=== PATIENT | male | born 1945 | race Caucasian/White ===

== ENCOUNTER → 2018-11-15 | Outpatient (CLI) | payer MEDICARE ==
--- NOTE | 2018-11-15 17:03 | MR ---
EXAMINATION TYPE: MR brain and iac wo/w con DATE OF EXAM: 11/15/2018 COMPARISON: HISTORY: Vertigo TECHNIQUE: Multiplanar, multisequence images of the brain and brainstem, cerebellopontine angles is performed wi thout and with IV contrast, utilizing 7 mL intravenous Gadavist . High-resolution small [id number] images obtained. FINDINGS: Diffusion weighted images demonstrate no evidence of a recent infarct or other diffusion ab normality. There is white matter signal abnormality, scattered hyperintensities are present on inver ilya recovery T2-weighted sequences within the periventricular, subcortical white matter, approximate ly 30 lesions are present. The ventricular system and cisternal spaces are normal in size and appear ance. The brain volume is age appropriate. Cerebellopontine angles are normal. Midline structures demonstrate normal morphology. The craniocervical junction appears within normal limits. Post contrast images demonstrate no abnormal enhancement. The dural venous sinuses appear pa tent. The visualized sinuses are clear and the globes are intact. IMPRESSION: Age-related atrophy and probable chronic small vessel ischemia. No abnormality of the int ernal auditory canals is evident.
== END | disposition home or self-care (01) ==
LOC: RADMRIMAIN 13:34
PROVIDERS: ATTEND Otolaryngology
DX: G31.1 Senile degeneration of brain, not elsewhere classified (principal)
CPT/HCPCS: 70553; A9585

== ENCOUNTER → 2019-04-03 | Outpatient (CLI) | payer MEDICARE ==
--- NOTE | 2019-04-04 16:21 | MR ---
MR angiogram of the neck without contrast HISTORY: Carotid stenosis [id number] imaging obtained through the neck and three-dimensional post processing was performed on an alternate workstation. No comparisons . Distal portion of the common carotid arteries, internal and external carotid arteries are patent. T here is no evidence of hemodynamic significant stenosis of the internal carotid arteries by NASCET cr iteria. Mild approximate 50% diameter reduction of the proximal internal carotid artery suspected on the left. Vertebral arteries are patent and codominant. No evident dissection or aneurysm. IMPRESSION: Mild carotid stenosis of the proximal internal carotid artery on the left could be confir med with carotid Doppler duplex.
== END | disposition home or self-care (01) ==
LOC: RADMRIMAIN 15:24
PROVIDERS: ATTEND Psychiatry & Neurology Neurology
DX: I65.22 Occlusion and stenosis of left carotid artery (principal)
CPT/HCPCS: 70547

== ENCOUNTER 2020-04-12 17:06 | Observation (INO) | payer MEDICARE ==
--- NOTE | 2020-04-12 17:25 | ED ---
Neuro HPI - General Chief Complaint: Neuro Symptoms/Deficit Stated Complaint: TIA-further testing Time Seen by Provider: 04/12/20 17:09 Source: patient, EMS, RN notes reviewed, old records reviewed Mode of arrival: EMS Limitations: no limitations - History of Present Illness Is the patient presenting with stroke symptoms?: No -: hour(s) Initial Comments: This is a 72-year-old male DF for evaluation patient is accepted in transfer. No current neurological symptoms. Patient has no complaints patient does suffer from high blood pressure Location: other (9) History of same: Yes Place: home Improves With: none Worsens With: none Treatments Prior to Arrival: none - Related Data Allergies/Adverse Reactions: Allergies Allergy/AdvReac Type Severity Reaction Status Date / Time celecoxib [From Celebrex] Allergy Rash/Hives Verified 04/12/20 17:15 Review of Systems ROS Statement: Those systems with pertinent positive or pertinent negative responses have been documented in the HPI. ROS Other: All systems not noted in ROS Statement are negative. General Exam Limitations: no limitations General appearance: alert, in no apparent distress Head exam: Present: atraumatic, normocephalic, normal inspection Eye exam: Present: normal appearance, PERRL, EOMI. Absent: scleral icterus, conjunctival injection, periorbital swelling ENT exam: Present: normal exam, mucous membranes moist Neck exam: Present: normal inspection. Absent: tenderness, meningismus, lymphadenopathy Respiratory exam: Present: normal lung sounds bilaterally. Absent: respiratory distress, wheezes, rales, rhonchi, stridor Cardiovascular Exam: Present: regular rate, normal rhythm, normal heart sounds. Absent: systolic murmur, diastolic murmur, rubs, gallop, clicks GI/Abdominal exam: Present: soft, normal bowel sounds. Absent: distended, tenderness, guarding, rebound, rigid Extremities exam: Present: normal inspection, full ROM, normal capillary refill. Absent: tenderness, pedal edema, joint swelling, calf tenderness Back exam: Present: normal inspection Neurological exam: Present: alert, oriented X3, CN II-XII intact Psychiatric exam: Present: normal affect, normal mood Skin exam: Present: warm, dry, intact, normal color. Absent: rash Stroke MDM - NIH Stroke Scale 1a. Level of Consciousness: (0) alert 1b. LOC Questions: (0) answers correctly 1c. LOC Commands: (0) performs tasks correctly 2. Best Gaze: (0) normal 3. Visual: (0) no visual loss 4. Facial Palsy: (0) normal symmetrical movement 5a. Motor Arm Left: (0) no drift 5b. Motor Arm Right: (0) no drift 6a. Motor Leg Left: (0) no drift 6b. Motor Leg Right: (0) no drift 7. Limb Ataxia: (0) absent 8. Sensory: (0) normal 9. Best Language: (0) no aphasia 10. Dysarthria: (0) normal 11. Extinction/Inattention: (0) no abnormality - Thrombolytic Inclusion/Exclusion Thrombolytic Exclusion Criteria: Symptom Onset > 4.5 Hours - Medical Decision Making 74 male DF for evaluation TIA patient via for neurology consult tomorrow Past Medical History Past Medical History: Hypertension History of Any Multi-Drug Resistant Organisms: None Reported Past Surgical History: Back Surgery Past Psychological History: No Psychological Hx Reported Smoking Status: Never smoker Past Alcohol Use History: Occasional Past Drug Use History: None Reported Course Vital Signs 04/12/20 17:10 Temperature 99.3 F Pulse Rate 91 Respiratory 18 Rate Blood Pressure 141/70 O2 Sat by Pulse 99 Oximetry - Reevaluation(s) Reevaluation #1: 04/12/20 17:33 Medical record and transfer paperwork are reviewed Reevaluation #2: 04/12/20 17:34 no current findings of stroke on physical exam Disposition Clinical Impression: Transient cerebral ischemia Disposition: ADMITTED IP TO THIS [facility] Condition: Good Is patient prescribed a controlled substance at d/c from ED?: No Referrals: Dav Vidal MD [Primary Care Provider] - 1-2 days
[2020-04-12] MEDS ORDERED: ASPIRIN 325 MG TAB PO STA (17:32)
[2020-04-12 18:47] VITALS: RESP 16
[2020-04-12] MEDS ORDERED: HYDROcodone/APAP 5-325MG 1 EACH TAB PO PRN (20:37)
[2020-04-12] MEDS ORDERED: ALPRAZolam 0.25 MG TAB PO PRN (20:37)
[2020-04-12] MEDS ORDERED: ATORVASTATIN 80 MG TAB PO SCH (21:00)
[2020-04-12 21:41] LABS: ALT 21 U/L (4-49); AST 23 U/L (17-59); African American GFR (CKD) >90 (>60 ml/min/1.73 sqM); Albumin 3.9 g/dL (3.5-5.0); Alkaline Phosphatase 39 U/L (38-126); Anion Gap 6 mmol/L; Blood Urea Nitrogen 18 mg/dL (9-20); Calcium 9.1 mg/dL (8.4-10.2); Carbon Dioxide 28 mmol/L (22-30); Chloride 104 mmol/L (98-107); Glucose 136 mg/dL (74-99); Non-African American GFR(CKD) 86 (>60 ml/min/1.73 sqM); Sodium 138 mmol/L (137-145); Total Bilirubin 0.7 mg/dL (0.2-1.3); Total Protein 6.2 g/dL (6.3-8.2)
[2020-04-12] MEDS: MAGNESIUM OXIDE 400 MG TAB PO SCH (22:34)
[2020-04-12] MEDS: HEPARIN SODIUM,PORCINE 5,000 UNIT/ML 1 ML VIAL SQ SCH (22:35)
[2020-04-12] MEDS: SODIUM CHLORIDE 0.9% 1,000 ML IV SCH (22:35)
[2020-04-12] MEDS: TAMSULOSIN 0.4 MG CAP.ER.24H PO SCH (22:35)
[2020-04-13 02:49] LABS: Appearance,Urine Clear (Clear); Bilirubin,Urine Negative (Negative); Blood,Urine Negative (Negative); Color,Urine Yellow; Glucose,Urine (UA) Negative (Negative); Ketones,Urine Negative (Negative); Leukocyte Esterase,Urine Negative (Negative); Nitrite,Urine Negative (Negative); PH, Urine 6.5 (5.0-8.0); Protein,Urine Negative (Negative); Specific Gravity,Urine 1.013 (1.001-1.035); Urobilinogen,Urine <2.0 mg/dL (<2.0)
--- NOTE | 2020-04-13 05:42 | HP ---
HISTORY AND PHYSICAL CHIEF COMPLAINTS: Dizziness and difficulty speaking. HISTORY OF PRESENT ILLNESS: This 74-year-old gentleman with a past medical history of multiple medical problems including history of hypertension, history of back surgery, history of TIAs being followed by REANNA Harper in the outpatient setting was having difficulty in speech about 2 weeks ago and today the patient had felt dizzy multiple times. Patient unable to find words and the patient was taken to [facility]. The CT scan showed no acute abnormality, some cerebral atrophy suspected. Patient was taken to [facility] and admitted for further evaluation and treatment. 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 Apparently patient also had 50% stenosis of the bilateral carotids being followed up in the outpatient setting also. There is no history of fever, rigors or chills. PAST MEDICAL HISTORY: Hypertension, history of back surgery. MEDICATIONS: The home medications are reviewed and include: 1. Multivitamins. 2. Magnesium oxide. 3. Flomax. 4. Toprol-XL 25 mg daily. 5. Vitamin D3. ALLERGIES: CELEBREX. FAMILY HISTORY: History of stroke in father. SOCIAL HISTORY: No history of smoking. No history of alcohol intake. . REVIEW OF SYSTEMS: ENT: As mentioned earlier. CARDIOVASCULAR SYSTEM: No angina or palpitations. RESPIRATORY SYSTEM: As mentioned earlier. GI: No nausea. : No dysuria. NERVOUS SYSTEM: As mentioned earlier. ALLERGY/IMMUNOLOGY: No asthma or hayfever. MUSCULOSKELETAL: As mentioned earlier. HEMATOLOGY: No history of anemia. ENDOCRINE: No history of diabetes or hypothyroidism. CONSTITUTIONAL: As mentioned earlier. DERMATOLOGY: Negative. RHEUMATOLOGY: Negative. PSYCHIATRY: As mentioned earlier. PHYSICAL EXAMINATION: The patient is alert and oriented x3. The pulse is blood pressure is 135/66, respirations 16, temperature 97.6, pulse ox 98% on room air. HEENT: Conjunctivae normal. NECK: No jugular venous distention. CARDIOVASCULAR: S1, S2 muffled. RESPIRATORY: Breath sounds diminished at the bases. No rhonchi, no crackles. ABDOMEN: Soft, nontender. No mass palpable. LEGS: No edema, no swelling. NERVOUS SYSTEM: Higher functions as mentioned earlier. Moves all 4 limbs. No focal motor or sensory deficits. LYMPHATICS: No lymphadenopathy of the neck, axillae or groin. SKIN: No ulcer, rash or bleeding. JOINTS: No active deforming arthropathy. LABS: Pending at this time. ASSESSMENT: 1. Possible acute transient ischemic attack involving the left hemisphere. 2. History of previous transient ischemic attacks. 3. History of possible cerebral atrophy. 4. History of carotid stenosis. 5. Hypertension. 6. History of back surgery. RECOMMENDATIONS AND DISCUSSION: This 74-year-old gentleman who presented with multiple complex medical issues, we will monitor the patient closely, continue the current medications, continue symptomatic treatment, antiplatelet agents, Lipitor. Otherwise resume the home medications and closely monitor. Neurology consultation. Neurovascular evaluation with 2D echo, carotid Doppler, MRI of the brain with contrast. Prognosis guarded because of multiple complex medical issues. Discussed with the patient, understands and agrees. Further recommendations to follow. MMODL / IJN: [id number] /
[2020-04-13] MEDS: PANTOPRAZOLE 40 MG TABLET PO SCH (06:12)
[2020-04-13] MEDS: SODIUM CHLORIDE 0.9% 1,000 ML IV SCH ×2 (06:13→13:25)
[2020-04-13 07:07] LABS: Basophils % (A) 0 %; Eosinophils # (A) 0.2 k/uL (0-0.7); Eosinophils % (A) 3 %; HCT 43.8 % (39.0-53.0); HGB 14.5 gm/dL (13.0-17.5); Lymphocytes # (A) 1.5 k/uL (1.0-4.8); Lymphocytes % (A) 25 %; MCH 30.7 pg (25.0-35.0); MCHC 33.2 g/dL (31.0-37.0); MCV 92.7 fL (80.0-100.0); Mean Platelet Volume 7.5; Monocytes # (A) 0.5 k/uL (0-1.0); Monocytes % (A) 8 %; Neutrophils # (A) 3.7 k/uL (1.3-7.7); Neutrophils % (A) 61 %; Platelet Count 269 k/uL (150-450); RBC 4.72 m/uL (4.30-5.90); RDW 13.9 % (11.5-15.5)
[2020-04-13 07:18] LABS: African American GFR (CKD) >90 (>60 ml/min/1.73 sqM); Anion Gap 2 mmol/L; Blood Urea Nitrogen 15 mg/dL (9-20); Calcium 8.3 mg/dL (8.4-10.2); Carbon Dioxide 28 mmol/L (22-30); Chloride 109 mmol/L (98-107); Cholesterol 134 mg/dL (<200); Glucose 83 mg/dL (74-99); HDL Cholesterol 35 mg/dL (40-60); LDL Cholesterol,Calculated 84 mg/dL (0-99); Non-African American GFR(CKD) 87 (>60 ml/min/1.73 sqM); Potassium 4.6 mmol/L (3.5-5.1); Sodium 139 mmol/L (137-145); Triglycerides 76 mg/dL (<150)
--- NOTE | 2020-04-13 08:45 | US ---
EXAMINATION TYPE: US carotid duplex BILAT DATE OF EXAM: 04/13/2020 COMPARISON: CT, MR CLINICAL HISTORY: TIA. EXAM MEASUREMENTS: RIGHT: Peak Systolic Velocity (PSV) cm/sec ----- Right CCA: 68.2 ----- Right ICA: 76.8 ----- Right ECA: 54.8 ICA/CCA ratio: 1.1 RIGHT: End Diastole cm/sec ----- Right CCA: 24.6 ----- Right ICA: 34.0 ----- Right ECA: 8.7 LEFT: Peak Systolic Velocity (PSV) cm/sec ----- Left CCA: 118.5 ----- Left ICA: 89.4 ----- Left ECA: 89.8 ICA/CCA ratio: 0.8 LEFT: End Diastole cm/sec ----- Left CCA: 39.1 ----- Left ICA: 27.2 ----- Left ECA: 13.9 VERTEBRALS (direction of flow): Right Vertebral: Antegrade Left Vertebral: Antegrade Rhythm: Arrhythmia Moderate, mixed intimal wall changes are noted at bilateral carotid bifurcations, but PSV is wnl bila terally. IMPRESSION: 1. Moderate plaque bilaterally with no significant hemodynamic stenosis. 2. Cardiac dysrhythmia Criteria for Assigning % of Stenosis / Diameter reduction (Estimation based on the indirect measurements of the internal carotid artery velocities (ICA PSV). 1. Normal (no stenosis)=ICA PSV < 125 cm/s: ratio < 2.0: ICA EDV<40 cm/s. 2. Less than 50% stenosis=ICA PSV < 125 cm/s: ratio < 2.0: ICA EDV<40 cm/s. 3. 50 to 69% stenosis=ICA PSV of 125 to 230 cm/s: ration 2.0 ? 4.0: ICA EDV 40-100 cm/s. 4. Greater than 70% stenosis to near occlusion= ICA PSV > 230 cm/s: ratio > 4.0: ICA EDV > 100 cm/s. 5. Near occlusion= ICA PSV velocities may be low or undetectable: variable ratio and ICA EDV. 6. Total occlusion=unable to detect flow.
[2020-04-13] MEDS: METOPROLOL SUCCINATE (ER) 25 MG TAB.ER.24H PO SCH (09:42)
[2020-04-13] MEDS: MULTIVITAMINS, THERA 1 EACH TAB PO SCH (09:42)
[2020-04-13] MEDS: HEPARIN SODIUM,PORCINE 5,000 UNIT/ML 1 ML VIAL SQ SCH ×2 (09:42→20:28)
[2020-04-13] MEDS: CHOLECALCIFEROL 1,000 UNIT TAB PO SCH (09:42)
--- NOTE | 2020-04-13 09:46 | MR ---
EXAMINATION TYPE: MR brain wo con DATE OF EXAM: 04/13/2020 COMPARISON: NONE HISTORY: Dizziness and Speech issues on and off. TIA's TECHNIQUE: T1-weighted sagittal, T2, FLAIR, and diffusion axial, and T2 coronal coronal views of the brain are submitted. FINDINGS: There is no evidence of acute ischemia. Mild generalized degenerative change and there are scattered focal areas of abnormal signal in the white matter bilaterally which are nonspecific. Cerebellar tonsils low-lying in position at level of foramen magnum. Sella turcica has a normal appea royce. No cerebellopontine angle mass. Orbits are symmetric. Changes of chronic sinusitis noted.. IMPRESSION: 1. No diagnostic evidence of acute ischemia. Degenerative and nonspecific white matter changes most t ypical of remote white matter ischemia. 2. Low-lying cerebellar tonsils at the level of foramen magnum.
[2020-04-13] MEDS: ASPIRIN 325 MG TAB PO SCH (13:25)
--- NOTE | 2020-04-13 15:55 | P.CNNES ---
History of Present Illness Consult date: 04/13/20 Requesting physician: Mahesh Olivares Reason for Consult: TIA History of Present Illness: Patient is a 74-year-old male, came to the hospital for recurrent possible TIA. Patient states that his first episode occurred one week ago Monday on 04/04/2020, when he was driving, he felt some light sensitivity in the light appears somewhat she strong and bright. He felt a pressure headache. Patient states that he stopped at a friend's house and while talking he did not make sense. He couldn't put words together. He came home, laid down for a few hours. And when he woke up, all symptoms were gone. Overall the speech difficulty lasted for almost an hour. He did not seek medical attention. Yesterday he was which visiting with friends outside his home, when he started feeling dizzy spells. At around 11 AM to noon, he noticed trouble communicating, could not form sentences, couldn't get words out. He laid down. His took him to [facility]. Patient states that while he was heading to the hospital his symptoms resolved, again in 1-1-1/2 hours. Patient underwent Carotid Doppler, which showed moderate plaque bilaterally with no significant hemodynamic stenosis. Cardiac dysrhythmia. Antegrade flow in both vertebral arteries. MRI of the brain showed no diagnostic evidence of acut e ischemia. Degenerative and nonspecific white matter changes most typical of remote white matter ischemia. Low lying cerebellar tonsils at the level of foramen magnum. Patient had an neck MRA also performed recently on 04/03/2019, which revealed mild carotid stenosis of the proximal ICA on the left could be confirmed with the carotid Doppler. Blood test shows normal CBC, Chem-7, hepatic panel, total cholesterol 134, LDL 84, HDL 35, triglycerides 76. UA negative. Telemetry monitoring so far has revealed sinus rhythm with bigeminy. No aphasia. Patient has history of hypertension, denies diabetes or tobacco use or alcohol. Patient says that he used to take a baby aspirin for last 1 year, but he was noticing some bruising, therefore he stopped taking it 2 weeks ago. Patient has seen ENT specialist in the past, who performed an MRI of the brain and internal auditory canal with and without contrast on 11/15/2018, which revealed no acute process. Age-related atrophy and probable chronic small vessel ischemia. Review of Systems Only as per HPI. All other review of systems were reviewed and unremarkable. Patient does have history of some intermittent pressure headaches. Past Medical History Past Medical History: Hypertension, Osteoarthritis (OA), Pneumonia History of Any Multi-Drug Resistant Organisms: None Reported Past Surgical History: Back Surgery, Orthopedic Surgery, Tonsillectomy Additional Past Surgical History / Comment(s): back surgery, left and right carpal tunnel, left shoulder replaced, Past Anesthesia/Blood Transfusion Reactions: Previous Problems w/ Anesthesia Additional Past Anesthesia/Blood Transfusion Reaction / Comment(s): "sedated for a long period of time post anesthesia" Past Psychological History: No Psychological Hx Reported Smoking Status: Never smoker Past Alcohol Use History: Occasional Past Drug Use History: None Reported - Past Family History Mother Family Medical History: Dementia Father Family Medical History: Coronary Artery Disease (CAD) Medications and Allergies Home Medications Medication Instructions Recorded Confirmed Type Cholecalciferol [Vitamin D3 (25 4,000 unit PO DAILY 04/12/20 04/12/20 History Mcg = 1000 Iu)] Magnesium Oxide 400 mg PO HS 04/12/20 04/12/20 History Metoprolol Succinate [Toprol XL] 25 mg PO DAILY 04/12/20 04/12/20 History Multivitamins, Thera [Multivitamin 1 tab PO DAILY 04/12/20 04/12/20 History (formulary)] Tamsulosin HCl [Flomax] 0.4 mg PO HS 04/12/20 04/12/20 History Allergies Allergy/AdvReac Type Severity Reaction Status Date / Time celecoxib [From Celebrex] Allergy Rash/Hives Verified 04/12/20 18:25 Physical Examination - Vital Signs Vital Signs: Vital Signs Temp Pulse Pulse Resp BP BP Pulse Ox 04/13/20 07:31 16 04/13/20 07:30 97.6 F 83 16 106/57 96 04/13/20 04:00 98.0 F 83 16 108/44 95 04/13/20 00:00 97.6 F 78 16 101/65 96 04/12/20 22:48 97.6 F 80 16 135/66 98 04/12/20 20:00 97.6 F 80 16 135/66 98 04/12/20 18:46 75 16 122/79 95 04/12/20 17:10 99.3 F 91 18 141/70 99 Intake and Output 04/12/20 04/13/20 04/13/20 22:59 06:59 14:59 Intake Total 800 240 Output Total 300 Balance 500 240 Intake: Intake, IV Titration 800 Amount Sodium Chloride 0.9% 1, 800 000 ml @ 100 mls/hr IV . Q10H [facility] Rx#:[id number] Oral 240 Output: Urine 300 Other: Voiding Method Toilet Toilet Toilet # Voids 1 1 1 Weight 70.76 kg 73 kg On examination patient is an elderly male, in no acute distress. Patient is alert, awake oriented to time place and person. Speech and language functions are normal. Attention and concentration, fund of knowledge is adequate. On cranial examination pupils are round and reactive to light, visual linares are full on confrontation. Extraocular muscles are intact with no nystagmus. Face is symmetric, tongue protrudes the midline. Palatal elevation and sensation normal. Hearing and shoulder shrug normal. On muscle strength testing there is no pronator drift and the strength is normal in arms and legs distally and proximally. Reflexes are 1+ and plantars downgoing. Sensory touch is equal. No ataxia for [id number]-[id number] testing. Tone and bulk of muscles normal. There is no carotid bruit, peripheral pulses are present. Chest is clear, abdomen soft nontender. Results - Laboratory Findings CBC and BMP: 04/13/20 05:44 04/13/20 05:44 Abnormal Lab Findings: Abnormal Labs 04/12/20 04/13/20 21:11 05:44 Chloride 109 H Glucose 136 H Calcium 8.3 L Total Protein 6.2 L HDL Cholesterol 35 L Assessment and Plan Assessment: * Recurrent TIAs, exact cause is uncertain. Carotid Doppler showed moderate plaque bilaterally with no significant stenosis. Mechanism of TIA uncertain, perhaps ? due to ulcerated plaque. * Hypertension * Dyslipidemia with low HDL. Plan: * Patient had 2 episodes of TIA since he stopped taking aspirin 2 weeks ago. Patient will be resumed on aspirin 81 mg daily. * We will also start Lipitor 40 mg daily. * 2-D echo has been completed, results still pending. * We will check hemoglobin A1c. * At present patient's NIH stroke scale is 0 and is completely asymptomatic. * Patient's telemetry monitoring showing sinus rhythm with bigeminy. Patient will undergo event monitor placement to rule out paroxysmal atrial fibrillation.
--- NOTE | 2020-04-13 17:10 | PN ---
PROGRESS NOTE DATE OF SERVICE: 04/13/2020 This 74-year-old gentleman admitted with dizziness and difficulty speaking is being evaluated for TIA at this time. A carotid Doppler was done today which showed moderate plaques bilaterally with no significant hemodynamic stenosis, and cardiac dysrhythmia was also noted. The brain MRI showed nonspecific white matter changes and low- lying cerebellar tonsils at the level of foramen magnum. The patient is being closely monitored. Past medical history reviewed. REVIEW OF SYSTEMS: CARDIOVASCULAR SYSTEM: No angina, palpitations. RESPIRATORY SYSTEM: As mentioned earlier. GI: As mentioned earlier. NERVOUS SYSTEM: As mentioned earlier. CURRENT MEDICATIONS: Reviewed. They include: 1. [place] 5 mg q.6. 2. Xanax. 3. Aspirin 325 mg. 4. Lipitor 80 mg. 5. Vitamin D3. 6. Heparin. 7. Magnesium oxide. 8. Toprol-XL. 9. Multivitamins. 10.Protonix. 11.Flomax. PHYSICAL EXAMINATION: Patient is alert, oriented x3. Pulse is 80, blood pressure 109/61, respirations 16, temperature 98.6, pulse ox 99% on room air. HEENT: Conjunctivae normal. NECK: No jugular venous distention. CARDIOVASCULAR SYSTEM: S1, S2 muffled. RESPIRATORY SYSTEM: Breath sounds diminished at the bases. No rhonchi. No crackles. ABDOMEN: Soft, non-tender. LEGS: No edema. No swelling. NERVOUS SYSTEM: Higher functions as mentioned earlier. Moves all 4 limbs. No focal motor or sensory deficit. LYMPHATICS: No lymph node palpable in neck, axillae or groin. SKIN: No ulcer, rash, bleeding. JOINTS: No active deforming arthropathy. LABS: CBC within normal limits. Sodium 139, potassium 4.6, is 35. ASSESSMENT: 1. Acute transient ischemic attack involving the left hemisphere. 2. Rule out cardiac dysrhythmia. 3. Plaques in the carotid arteries. 4. History of previous transient ischemic attacks. 5. History of possible cerebral atrophy. 6. History of carotid stenosis. 7. Hypertension. 8. History of back surgery. RECOMMENDATIONS AND DISCUSSION: I recommend to continue current medications, continue with the monitoring, symptomatic treatment. Otherwise at this time continue the antiplatelet agents. Two-D echo with Doppler. Continue with Lipitor. Continue with current medications and stop the IV fluids. DVT prophylaxis. I would also recommend cardiology consultation to rule out the possibility of cardiac arrhythmia. The patient might also require a MARY after the 2D echo and also possibly event monitor, depending upon the cardiac abnormality. Once again, the prognosis is guarded. family, who understands and agrees. Further recommendations to follow. MIKAELA / JASMINE: [id number] / MTDD
[2020-04-13 19:13] LABS: Hemoglobin A1C 5.2 % (4.0-6.0)
[2020-04-13] MEDS: TAMSULOSIN 0.4 MG CAP.ER.24H PO SCH (20:28)
[2020-04-13] MEDS: MAGNESIUM OXIDE 400 MG TAB PO SCH (20:28)
[2020-04-13] MEDS ORDERED: ATORVASTATIN 40 MG TAB PO SCH (21:00)
[2020-04-14] MEDS: PANTOPRAZOLE 40 MG TABLET PO SCH (06:14)
[2020-04-14] MEDS: ASPIRIN 325 MG TAB PO SCH (07:49)
[2020-04-14] MEDS: HEPARIN SODIUM,PORCINE 5,000 UNIT/ML 1 ML VIAL SQ SCH (07:49)
[2020-04-14] MEDS: MULTIVITAMINS, THERA 1 EACH TAB PO SCH (07:49)
[2020-04-14] MEDS: CHOLECALCIFEROL 1,000 UNIT TAB PO SCH (07:49)
[2020-04-14] MEDS: METOPROLOL SUCCINATE (ER) 25 MG TAB.ER.24H PO SCH (07:49)
[2020-04-14 08:33] VITALS: TEMP 98.6
[2020-04-14 08:35] VITALS: BP 116/80; PULSE 87
[2020-04-14 08:40] LABS: Basophils % (A) 0 %; Eosinophils # (A) 0.2 k/uL (0-0.7); Eosinophils % (A) 3 %; HCT 45.1 % (39.0-53.0); HGB 14.2 gm/dL (13.0-17.5); Lymphocytes # (A) 1.8 k/uL (1.0-4.8); Lymphocytes % (A) 28 %; MCHC 31.4 g/dL (31.0-37.0); MCV 92.3 fL (80.0-100.0); Mean Platelet Volume 8.3; Monocytes # (A) 0.6 k/uL (0-1.0); Monocytes % (A) 9 %; Neutrophils # (A) 3.8 k/uL (1.3-7.7); Neutrophils % (A) 58 %; Platelet Count 270 k/uL (150-450); RBC 4.89 m/uL (4.30-5.90); WBC 6.6 k/uL (3.8-10.6)
[2020-04-14 08:56] LABS: African American GFR (CKD) >90 (>60 ml/min/1.73 sqM); Anion Gap 4 mmol/L; Blood Urea Nitrogen 19 mg/dL (9-20); Calcium 8.4 mg/dL (8.4-10.2); Carbon Dioxide 27 mmol/L (22-30); Chloride 107 mmol/L (98-107); Glucose 72 mg/dL (74-99); Non-African American GFR(CKD) 86 (>60 ml/min/1.73 sqM); Potassium 4.6 mmol/L (3.5-5.1); Sodium 138 mmol/L (137-145)
--- NOTE | 2020-04-14 10:48 | P.DS ---
Providers Date of admission: 04/12/20 17:32 Attending physician: Mary Degroot Consults: 04/12/20 17:32 Consult Physician Routine Consulting Provider: Marycruz Mclean Consult Reason/Comments: tia Do you want consulting provider notified?: Yes 04/13/20 13:41 Consult Physician Routine Consulting Provider: Isabell Vera Consult Reason/Comments: TIA Do you want consulting provider notified?: Yes Primary care physician: Dav Vidal MD Hospital Course: Patient given symptomology consistent with the TIAs. Patient underwent workup for stroke, including MRI which did not show any significant ischemic changes may have had remote white matter ischemia. Patient had a carotid Doppler which was is also within normal notes patient is awaiting echocardiac exam was get the results of echocardiogram patient will be discharged with aspirin and Lipitor. Patient was comparing of lightheadedness patient blood pressures no normal with systolics going down to high 90s to low 100 patient apparently is taking metoprolol very low-dose for blood pressure his heart rate is in 60s asked him to discontinue metoprolol check the blood pressure at home 3 times a day. Check the heart rate as well. If his heart rate goes as patient can slowly wean of metoprolol by taking half a pill a day and is slowly discontinue this medication. Patient doesn't appear to be needing any medications for blood pressure since he lost his 20 pound weight after he changed his diet. PHYSICAL EXAMINATION: GENERAL: The patient is alert and oriented x3, not in any acute distress. Well developed, well nourished. HEENT: Pupils are round and equally reacting to light. EOMI. No scleral icterus. No conjunctival pallor. Normocephalic, atraumatic. No pharyngeal erythema. No thyromegaly. CARDIOVASCULAR: S1 and S2 present. No murmurs, rubs, or gallops. PULMONARY: Chest is clear to auscultation, no wheezing or crackles. ABDOMEN: Soft, nontender, nondistended, normoactive bowel sounds. No palpable organomegaly. MUSCULOSKELETAL: No joint swelling or deformity. EXTREMITIES: No cyanosis, clubbing, or pedal edema. NEUROLOGICAL: Gross neurological examination did not reveal any focal deficits. SKIN: No rashes. The rest of the medical problems and an hospitalization course please refer to documentation from Dr. Degroot from yesterday. We ruled out stroke there is no stroke but there is a possibility of TIA Patient Condition at Discharge: Good Plan - Discharge Summary Discharge Rx Participant: No New Discharge Prescriptions: New Aspirin 81 mg PO DAILY #30 chewable Atorvastatin [Lipitor] 40 mg PO HS #30 tab Continue Multivitamins, Thera [Multivitamin (formulary)] 1 tab PO DAILY Tamsulosin HCl [Flomax] 0.4 mg PO HS Cholecalciferol [Vitamin D3 (25 Mcg = 1000 Iu)] 4,000 unit PO DAILY Magnesium Oxide 400 mg PO HS Discontinued Metoprolol Succinate [Toprol XL] 25 mg PO DAILY Discharge Medication List Cholecalciferol [Vitamin D3 (25 Mcg = 1000 Iu)] 4,000 unit PO DAILY 04/12/20 [History] Magnesium Oxide 400 mg PO HS 04/12/20 [History] Multivitamins, Thera [Multivitamin (formulary)] 1 tab PO DAILY 04/12/20 [History] Tamsulosin HCl [Flomax] 0.4 mg PO HS 04/12/20 [History] Aspirin 81 mg PO DAILY #30 chewable 04/14/20 [Rx] Atorvastatin [Lipitor] 40 mg PO HS #30 tab 04/14/20 [Rx] Follow up Appointment(s)/Referral(s): Dav Vidal MD [Primary Care Provider] - 3 Days Discharge Disposition: HOME SELF-CARE
--- NOTE | 2020-04-14 12:06 | ECHOF ---
Referral Reason:Thrombus MEASUREMENTS -------- HEIGHT: 170.2 cm WEIGHT: 72.6 kg BP: 108/44 RVIDd: 3.5 cm (< 3.3) IVSd: 1.2 cm (0.6 - 1.1) LVIDd: 5.0 cm (3.9 - 5.3) LVPWd: 1.0 cm (0.6 - 1.1) IVSs: 1.7 cm LVIDs: 2.8 cm LVPWs: 1.6 cm LA Diam: 3.3 cm (2.7 - 3.8) LAESV Index (A-L): 21.50 ml/m Ao Diam: 3.4 cm (2.0 - 3.7) AV Cusp: 2.0 cm (1.5 - 2.6) MV EXCURSION: 18.547 mm (> 18.000) MV EF SLOPE: 125 mm/s (70 - 150) EPSS: 0.7 cm MV E Lorne: 0.72 m/s MV DecT: 291 ms MV A Lorne: 0.83 m/s MV E/A Ratio: 0.87 RAP: 5.00 mmHg RVSP: 28.98 mmHg FINDINGS -------- Sinus rhythm with extra systolic beats. This was a technically difficult study with suboptimal apical views. The left ventricular size is normal. There is borderline concentric left ventricular hypertrophy. Overall left ventricular systolic function is normal with, an EF between 55 - 60 %. The right ventricle is mildly enlarged. Normal LA size by volume 22+/-6 ml/m2. The right atrial size is normal. 3 ml of Lumason was utilized for enhancement of images. Interatrial and interventricular septum intact. The aortic valve is trileaflet, and appears structurally normal. No aortic stenosis or regurgitation. The mitral valve is normal. Mild mitral regurgitation is present. Mild tricuspid regurgitation present. Right ventricular systolic pressure is normal at < 35 mmHg. The pulmonic valve was not well visualized. There is no pulmonic regurgitation present. The aortic root size is normal. Normal inferior vena cava with normal inspiratory collapse consistent with estimated right atrial pre ssure of 5 mmHg. There is no pericardial effusion. CONCLUSIONS -------- 1. This was a technically difficult study with suboptimal apical views. 2. There is borderline concentric left ventricular hypertrophy. 3. Overall left ventricular systolic function is normal with, an EF between 55 - 60 %. 4. The right ventricle is mildly enlarged. 5. Normal LA size by volume 22+/-6 ml/m2. 6. 3 ml of Lumason was utilized for enhancement of images. 7. The aortic valve is trileaflet, and appears structurally normal. No aortic stenosis or regurgitati on. 8. Mild mitral regurgitation is present. 9. Mild tricuspid regurgitation present. 10. There is no pericardial effusion. CLINICAL FELLOW: Yumi Mike RDCS
--- NOTE | 2020-04-16 16:04 | P.PN ---
Subjective Progress Note Date: 04/14/20 Patient states all symptoms have resolved. Denies any new focal symptoms. Objective - Vital Signs Vital signs: Vital Signs Temp 98.6 F 04/14/20 07:49 Pulse 87 04/14/20 07:59 Resp 16 04/14/20 07:49 BP 116/80 04/14/20 07:59 Pulse Ox 96 04/14/20 07:49 - Exam Nonfocal. 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 Carotid Doppler showed moderate plaque bilaterally with no significant stenosis. Mechanism of TIA uncertain, perhaps ? due to ulcerated plaque. * Hypertension * Dyslipidemia with low HDL. Plan: * Patient had 2 episodes of TIA since he stopped taking aspirin 2 weeks ago. Patient will be resumed on aspirin 81 mg daily. * Continue Lipitor 40 mg daily. * 2-D echo borderline concentric LVH. EF 55-60%. Normal left atrial size. * Hemoglobin A1c 5.2. * At present patient's NIH stroke scale is 0 and is completely asymptomatic. * Patient's telemetry monitoring showing sinus rhythm with bigeminy. * Patient will undergo event monitor placement to rule out paroxysmal atrial fibrillation. * Neurologically clear for discharge.
== END 2020-04-14 12:53 | disposition home or self-care (01) ==
LOC: EC 17:06 → 3SCARD 17:32
PROVIDERS: ADMIT Hospitalist; ATTEND Hospitalist
DX: R42 Dizziness and giddiness (principal); R47.1 Dysarthria and anarthria; E78.5 Hyperlipidemia, unspecified; I10 Essential (primary) hypertension; I65.29 Occlusion and stenosis of unspecified carotid artery; Z79.899 Other long term (current) drug therapy; Z82.3 Family history of stroke; Z11.59 Encounter for screening for other viral diseases; Z82.49 Family history of ischemic heart disease and other diseases of the circulatory system; Z86.73 Personal history of transient ischemic attack (TIA), and cerebral infarction without residual deficits; Z96.612 Presence of left artificial shoulder joint; Z79.82 Long term (current) use of aspirin; Z79.891 Long term (current) use of opiate analgesic
CPT/HCPCS: 96361 ×2; 96372 ×3; 96360; 99285; 93270; 97161; 97165; 80061; 80053; 80048 ×2; 85025 ×2; 81003; 83036; 93880; 70551; G0378 ×3; C8929; U0003; J1644 ×3; 93306